=== PATIENT | female | born 1980 ===

== ENCOUNTER 2024-06-27 17:14 | Inpatient (IN) | payer OTHER ==
[2024-06-27 21:10] VITALS: BMI 33.3
[2024-06-27] MEDS ORDERED: chlordiazePOXIDE HCL 25 MG CAPSULE PO PRN (21:28)
[2024-06-27] MEDS ORDERED: ACETAMINOPHEN 325 MG TABLET (FP) PO PRN (21:34)
[2024-06-27] MEDS ORDERED: BENZONATATE 200 MG CAPSULE PO PRN (21:34)
[2024-06-27] MEDS ORDERED: MAGNESIUM HYDROX 2400MG/30ML ORAL SUSPENSION 30 ML CUP PO PRN (21:34)
[2024-06-27] MEDS ORDERED: LOPERAMIDE HCL 2 MG CAPSULE PO PRN (21:34)
[2024-06-27] MEDS ORDERED: BISMUTH SUBSALICYLATE 524 MG/30 ML PO PRN (21:34)
[2024-06-27] MEDS ORDERED: hydrOXYzine PAMOATE 25 MG CAPSULE (FP) PO PRN (21:34)
[2024-06-27] MEDS ORDERED: DICYCLOMINE HCL 10 MG CAPSULE PO PRN (21:34)
[2024-06-27] MEDS ORDERED: POLYETHYLENE GLYCOL (HEALTHYLAX) 3350 17 GM PACKET PO PRN (21:34)
[2024-06-27] MEDS ORDERED: IBUPROFEN 400 MG TABLET (FP) PO PRN (21:34)
[2024-06-27] MEDS ORDERED: guaiFENesin 600 MG TABLET.ER (FP) PO PRN (21:34)
[2024-06-27] MEDS ORDERED: BENZOCAINE/MENTHOL (CHLORASEPTIC ) LOZENGE MM PRN (21:34)
[2024-06-27] MEDS ORDERED: MAG HYDROX/AL HYDROX/SIMETH 30 ML UNIT-DOSE CUP PO PRN (21:34)
[2024-06-27] MEDS ORDERED: IBUPROFEN 600 MG TABLET (FP) PO PRN (21:34)
[2024-06-27] MEDS ORDERED: ONDANSETRON *ODT* 4 MG TABLET SL PRN (21:34)
[2024-06-27] MEDS ORDERED: METOPROLOL TARTRATE 25 MG TABLET (FP) ONE (23:25)
[2024-06-27] MEDS ORDERED: MELATONIN 5 MG TABLETS ONE (23:25)
[2024-06-27] MEDS ORDERED: chlordiazePOXIDE HCL 25 MG CAPSULE ONE (23:25)
[2024-06-27] MEDS: chlordiazePOXIDE HCL 25 MG CAPSULE PO SCH (23:28)
[2024-06-27] MEDS: METOPROLOL TARTRATE 25 MG TABLET (FP) PO ONE (23:30)
[2024-06-27] MEDS: THIAMINE 100 MG TABLET PO SCH (23:30)
[2024-06-27] MEDS: MELATONIN 5 MG TABLETS PO SCH (23:30)
[2024-06-28] MEDS: PRENATAL VITAMINS W/ FOLIC ACID TABLET (FP) PO SCH (09:46)
[2024-06-28] MEDS: CYPROHEPTADINE HCL 4 MG TABLET PO SCH (16:38)
[2024-06-28 17:39] LABS: HEMOGLOBIN 12.8 GM/dL (10.7-15.3); MCHC 32.7 g/dl (32.0-36.0); MEAN CELL VOLUME 88.5 fl (80-96); MEAN PLT VOLUME 11.3 fl (7.5-11.1); PLATELET COUNT 87 10^3/uL (134-434); RBC 4.41 M/mm3 (3.60-5.2); WHITE BLOOD COUNT 7.5 K/mm3 (4.0-10.0)
[2024-06-28 17:58] LABS: CHLORIDE 96 mmol/L (98-107); POTASSIUM 3.5 mmol/L (3.5-5.1); SODIUM 133 mmol/L (136-145)
[2024-06-28 18:06] LABS: ALBUMIN 3.8 g/dl (3.4-5.0); CALCIUM 9.3 mg/dL (8.5-10.1)
[2024-06-28 18:07] LABS: ANION GAP 6 mmol/L (4-13); BLOOD UREA NITROGEN 7.4 mg/dL (7-18); CO2 31 mmol/L (21-32); GLUCOSE,RANDOM 117 mg/dL (74-106)
[2024-06-28 18:09] LABS: SGOT/AST 59 U/L (15-37); SGPT/ALT 54 U/L (13-61)
[2024-06-28 18:10] LABS: CREATININE 0.8 mg/dL (0.55-1.3)
[2024-06-28 18:11] LABS: TOT PROT 7.4 g/dl (6.4-8.2)
[2024-06-28 18:12] LABS: ALK PHOS 148 U/L (45-117)
[2024-06-28] MEDS: SUVOREXANT 10 MG TABLET PO PRN (22:16)
[2024-06-28] MEDS: METHOCARBAMOL 500 MG TABLET PO PRN (22:17)
[2024-06-29] MEDS: chlordiazePOXIDE HCL 25 MG CAPSULE PO SCH (05:52)
[2024-06-30] MEDS ORDERED: chlordiazePOXIDE HCL 10 MG CAPSULE PO PRN
[2024-06-30] MEDS: chlordiazePOXIDE HCL 10 MG CAPSULE PO SCH (05:40)
[2024-07-01] MEDS: chlordiazePOXIDE HCL 10 MG CAPSULE PO SCH (06:06)
[2024-07-01] MEDS: MELATONIN 5 MG TABLETS PO ONE (23:47)
[2024-07-02] MEDS: chlordiazePOXIDE HCL 10 MG CAPSULE PO ONE (05:55)
[2024-07-02 09:32] VITALS: BP 108/68; PULSE 105; RESP 18; TEMP 97.1
== END 2024-07-02 10:48 | disposition home or self-care (01) | DRG 775 ==
LOC: YASAS 17:14 → Y6N 23:17
PROVIDERS: ADMIT Allergy & Immunology; ATTEND Surgery
PROC: HZ2ZZZZ Detoxification Services for Substance Abuse Treatment (ICD-10-PCS; principal; 2024-06-27)
DX: F10.230 Alcohol dependence with withdrawal, uncomplicated (principal); F10.282 Alcohol dependence with alcohol-induced sleep disorder; F32.A Depression, unspecified; D69.6 Thrombocytopenia, unspecified
CPT/HCPCS: 36415; 80053; 80305; 80307; 81025; 85027; 86780; 93005; 93010